=== PATIENT | female | born 1950 | race African-American/Black ===

== ENCOUNTER 2025-01-07 10:00 | Outpatient (AMB) | payer MEDICARE, OTHER, SELFPAY ==
--- NOTE | 2025-01-07 10:03 | A.OFFVIS_ITS ---
Vital Signs 01/07/25 10:05 Height 5 ft 5 in Weight 210 lb BMI 34.9 BP 145/76 H Blood Pressure Location Lt brachial Position Sitting Respiration 16 Pulse 91 Pulse Source Pulse Oximeter Pulse Oximetry (%) 99 Oxygen Delivery Method Room Air Intake Visit Reasons: Lumbar radiculopathy Warehouse Inventory Clerk Required: No Allergies No Known Allergies Allergy (Verified 01/07/25 10:07) Medication List - Last Reconciled 01/07/25 by Hoa Bryant LPN acetaminophen 500 mg PO TID gabapentin 600 mg PO TID HPI HPI Lumbar radiculopathy: Details: History of Present Illness The patient is a 74-year-old female presenting with lumbar radiculopathy. Her condition is characterized by pain in the left lower back with radiation to the left leg, which has worsened over several months. 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 The patient?s pain severity ranges from 3 to 5/10. Initial physical therapy sessions provided relief, but the symptoms persisted, leading to two transforaminal epidural steroid injections that offered limited and temporary relief. Despite ongoing medication therapy with gabapentin and amitriptyline, the patient continues to experience issues, specifically at night, although reports indicate an overall improvement in the last three months. The primary concern remains the interference of pain with her daily activities and sleep. Pain Description - Onset: Several years ago; worsened in recent months. - Quality: Aching pain. - Location: Left lower back with radiation down to the left leg. - Intensity: Initially 3 to 5/10. - Timing: Worse at night. - Exacerbating Factors: Lying down. - Relieving Factors: Medication, potentially physical therapy. - Interference: Nighttime sleep disturbances and daily activities. Results - MRI: - Moderate central stenosis at L4-5 with L5 nerve root compression, worse on the left side. - Transitional anatomy with sacralization of L5. 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 Pain Management - Affect: Pain impacts nighttime sleep and daily functional ability. - Analgesia: Current pain levels are 3 to 5/10. Medications include gabapentin (600 mg TID) and amitriptyline. - Adverse Effects: Dependency concern on gabapentin. - Activities of Daily Living: Significant impact due to nocturnal pain. - Aberrant Drug Related Behaviors: No aberrant behaviors noted. Physical Exam Vital Signs: Last Vital Signs Pulse 91 01/07/25 10:05 Resp 16 01/07/25 10:05 BP 145/76 H 01/07/25 10:05 Pulse Ox 99 01/07/25 10:05 Oxygen Delivery Method Room Air 01/07/25 10:05 BMI result Body Mass Index 34.9 Assessment & Plan Assessment & Plan (1) Lumbar radiculopathy: Code(s): M54.16 - Radiculopathy, lumbar region Category: Medical Plan - Continue strengthening and stretching exercises daily. - Gradually reduce gabapentin as discussed: Start taking one instead of two tablets, three times a day. - Monitor pain levels and contact me if severe pain flares occur. - Maintain current exercise and yoga activities. - Use Tylenol as needed for pain relief. - Discuss any changes in symptoms or concerns at the next follow-up. Patient was informed and verbally consented to the use of an ambient scribe for clinic note documentation during this visit. Coding Level of Care Code New Pt Level 4 (30872) Diagnoses Lumbar radiculopathy M54.16
[2025-01-07 10:05] VITALS: BP 145/76; PULSE 91; RESP 16; O2SAT 99; BMI 34.9
--- OUTSIDE RECORDS SUMMARY | 2025-01-07 10:46 | XMS_ITS | Continuity of Care Document ---
Author Organization [facility] Address [address] [place] [address]- Care Team Providers Care Waredresser Name Role Phone Mary Carmen Leal MD [id number]24 [facility] [address] [place], [place] [address] Encounter Diagnosis Lumbosacral disc herniation(Discharge Diagnosis) - 12/08/24 Hypertension(Discharge Diagnosis) - 12/08/24 Attending Physician: Mary Carmen Leal MD Encounter Type: Office Visit Allergies, Adverse Reactions, Alerts No Known Allergies Immunizations Given and Recorded Vaccine Date Status Refusal Reason pneumococcal 20-valent conjugate vaccine 03/23/24 Recorded zoster vaccine, inactivated 09/05/23 Recorded zoster vaccine, inactivated 06/21/23 Recorded SARS-CoV-2 mRNA ([id number]) vax 06/12/22 Recorded SARS-CoV-2 (COVID-19) mRNA BNT-162b2 vac 10/03/21 Recorded SARS-CoV-2 (COVID-19) mRNA BNT-162b2 vac 02/18/21 Recorded SARS-CoV-2 (COVID-19) mRNA BNT-162b2 vac 01/28/21 Recorded pneumococcal 13-valent vaccine 1 05/25/18 Given tetanus/diphtheria/pertussis, acel(Tdap) 2 04/01/16 Given Zoster Vaccine Live 3 12/10/15 Recorded pneumococcal 23-valent vaccine 4 07/31/15 Given 1Result Comment: [05/25/2018] [facility]# [id number] pt. tolerated inj. without complications...CO 2Result Comment: [04/01/2016] given w/o incident...AD 3[facility] History: [facility] 4Result Comment: [07/31/2015] given without incident....vs Medications amLODIPine 5 mg oral tablet 5 mg, 1, tablet, By Mouth, Daily, # 90 tablet, Refills 3, Tot. Refills 3, Maintenance, 08/30/24 1:18:00 PM EDT, Route to Pharmacy Electronically, [id number], NOTE NOW TAKING 5MG TAB; PUT ON FILE, 164, cm, 08/30/24 12:38:00 EDT, Height, 93.3, kg, 08/30/24 12:38:00 EDT, Dry Weight Start Date: 08/30/24 Status: Ordered Quantity: 90.0 Unit: tablet Repeat number: 4 aspirin 81 mg oral tablet 1 tablet = 81 mg, By Mouth, Daily, # 30 tablet, 0 Refills, Maintenance, 07/31/15 8:19:52 AM EDT, Tablet Start Date: 07/31/15 Status: Ordered Quantity: 30.0 Unit: tablet Repeat number: 1 calcium carbonate (OP) By Mouth, 0 Refills, Maintenance, 2 Start Date: 05/07/22 Status: Ordered Repeat number: 1 ferrous sulfate 325 mg oral tablet 1 tablet = 325 mg, By Mouth, Every 48 hours, # 30 tablet, 6 Refills, Maintenance, 07/31/15 8:20:47 AM EDT, Tablet Start Date: 07/31/15 Stop Date: 08/30/15 Status: Ordered Quantity: 30.0 Unit: tablet Repeat number: 1 gabapentin 300 mg oral capsule 2, capsule, By Mouth, 3 times a day, # 180 capsule, Refills 11, Tot. Refills 11, Maintenance, 08/30/24 1:19:00 PM EDT, Route to Pharmacy Electronically, [facility], 164, cm, 08/30/24 12:38:00 EDT, Height, 93.3, kg, 08/30/24 12:38:00 EDT, Dry Weight Start Date: 08/30/24 Status: Ordered Quantity: 180.0 Unit: capsule Repeat number: 12 Hair, skin & Nails Multiple Vitamins with Minerals oral tablet 1 tablet, By Mouth, Daily, # 90 tablet, 2 Refills, Maintenance, 03/13/22 1:51:00 PM EDT, [facility], Partial fill upon patient request if the prescription is for a schedule II opioid drug., 1 tablet By Mouth Daily, 163.3, cm, 03/13/22 13:07:00 EDT, Height, 90.1, kg, 05/09/21 11:09:00 EDT, Dry Weight Start Date: 03/13/22 Status: Ordered Quantity: 90.0 Unit: tablet Repeat number: 3 Home Blood Pressure Monitor See Instructions, # 1 Unknown, Maintenance, dx: I10 use daily, 12/09/22 4:07:00 PM EST, Supply, 162.9, cm, 11/14/22 8:13:00 EST, Height, 92.54, kg, 05/07/22 15:44:00 EDT, Dry Weight Start Date: 12/09/22 Status: Ordered Quantity: 1.0 Unit: Unknown Repeat number: 1 Lidoderm 5% film See Instructions, 1 patch Topically Daily remove patches after 12 hours, # 30 patch, 11 Refills, Maintenance, 08/30/24 1:19:00 PM EDT, Film, [facility], Partial fill upon patient request if the prescription is for a schedule II opioid drug., 1 patch Topically Daily; remove patches after 12 hours, 164, cm, 08/30/24 12:38:00 EDT, Height, 93.3, kg, 08/30/24 12:38:00 EDT, Dry Weight Start Date: 08/30/24 Status: Ordered Quantity: 30.0 Unit: patch Repeat number: 12 Nature's Bounty Red Krill Oil = 1,000 mg, By Mouth, Daily, 0 Refills, Maintenance, 03/18/18 9:21:08 AM EDT Start Date: 03/18/18 Status: Ordered Repeat number: 1 Tylenol Extra Strength 500 mg oral tablet 2 tablet = 1,000 mg, By Mouth, 3 times a day, PRN Pain , Moderate, # 100 tablet, 0 Refills, Maintenance, 12/08/24 11:37:00 AM EST, Tablet, Partial fill upon patient request if the prescription is for aschedule II opioid drug. Start Date: 12/08/24 Status: Ordered Quantity: 100.0 Unit: tablet Repeat number: 1 Vitamin D3 1000 intl units oral capsule 1 capsule = 25 mcg, By Mouth, Daily, # 100 capsule, 0 Refills, Maintenance, 07/31/15 8:20:17 AM EDT,Capsule Start Date: 07/31/15 Status: Ordered Quantity: 100.0 Unit: capsule Repeat number: 1 Problem List Condition Confirmation Course Effective Dates Status Health St atus Informant Lumbosacral disc herniation Confirmed Active Acid reflux Confirmed Active History of endometrial cancer Confirmed Active Hypertension Confirmed Active Lower back pain Confirmed Active Obese class I Confirmed Active Routine medical exam Confirmed Active Post herpetic neuralgia Confirmed Active Lumbar disc herniation Confirmed Active Reflux of urine Confirmed Active Diagnosis Diagnosis Type Effective Dates Health Status Clinical Service Informant Lumbosacral disc herniation Discharge Diagnosis 12/08/24 Hypertension Discharge Diagnosis 12/08/24 Social History Social History Type Response Smoking Status Never smoker entered on: 01/24/15 Sex Sex Representation Female (finding) Patient Care team information Care Team Personnel Name: Mary Carmen Leal MD Position: [facility] Physician - Primary Care Member Role: PCP Address: [address] [place] [address] Telecom: Care Team Related Persons Name: REAL FRANKEL Name: ISABELLE SANDOVAL Name: ADA BARBA Insurance Providers Guarantor name: JUAN JOSE BARBA Health Plan Information #: 2 Payer: [facility] Member Number: [id number] Policy Number: NA Group Number: [id number] Health Plan Information #: 1 Payer: MEDICARE PART B OUTPT Member Number: [id number] Policy Number: NA Group Number: NA
--- OUTSIDE RECORDS SUMMARY | 2025-01-07 10:46 | XMS_ITS | Continuity of Care Document ---
Author Organization [facility] Address [address] [place] [address]- Care Team Providers Care Hearing Care Practitioner Name Role Phone Mary Carmen Leal MD Primary Care Physician [id number] Date(s): 11/23/24 - 12/23/24 [facility] [address] [place], [place] [address] Encounter Type: Triage Allergies, Adverse Reactions, Alerts No Known Allergies Immunizations Given and Recorded Vaccine Date Status Refusal Reason pneumococcal 20-valent conjugate vaccine 03/23/24 Recorded zoster vaccine, inactivated 09/05/23 Recorded zoster vaccine, inactivated 06/21/23 Recorded SARS-CoV-2 mRNA ([id number]) vax 06/12/22 Recorded SARS-CoV-2 (COVID-19) mRNA BNT-162b2 vac 10/03/21 Recorded SARS-CoV-2 (COVID-19) mRNA BNT-162b2 vac 02/18/21 Recorded SARS-CoV-2 (COVID-19) mRNA BNT-162b2 vac 01/28/21 Recorded pneumococcal 13-valent vaccine 1 05/25/18 Given tetanus/diphtheria/pertussis, acel(Tdap) 2 04/01/16 Given Zoster Vaccine Live 3 12/10/15 Recorded pneumococcal 23-valent vaccine 4 07/31/15 Given 1Result Comment: [05/25/2018] [facility]# [id number] pt. tolerated inj. without complications...CO 2Result Comment: [04/01/2016] given w/o incident...AD 3Location History: [facility] 4Result Comment: [07/31/2015] given without incident....vs Medications amLODIPine 5 mg oral tablet 5 mg, 1, tablet, By Mouth, Daily, # 90 tablet, Refills 3, Tot. Refills 3, Maintenance, 08/30/24 1:18:00 PM EDT, Route to Pharmacy Electronically, [facility], NOTE NOW TAKING 5MG TAB; [...] 1:19:00 PM EDT, Route to Pharmacy Electronically, [facility], 164, cm, 08/30/24 12:38:00 EDT, Height, 93.3, kg, 08/30/24 12:38:00 EDT, Dry Weight Start Date: 08/30/24 Status: Ordered Quantity: 180.0 Unit: capsule Repeat number: 12 Hair, skin & Nails Multiple Vitamins with Minerals oral tablet 1 tablet, By Mouth, Daily, # 90 tablet, 2 Refills, Maintenance, 03/13/22 1:51:00 PM EDT, [facility], Partial fill upon patient request if [...] Refills, Maintenance, 08/30/24 1:19:00 PM EDT, Film, [facility] #[facility], Partial fill upon patient request [...] Confirmed Active Reflux of urine Confirmed Active Social History Social History Type Response Smoking Status Never smoker entered on: 01/24/15 Sex Sex Representation Female (finding) Patient Care team information Care Team Personnel Name: Mary Carmen Leal MD Position: [facility] Physician - Primary Care Member Role: PCP Address: [address] [place] [address] Telecom: Care Team Related Persons Name: REAL FRANKEL Name: ISABELLE SANDOVAL Name: ADA BARBA Insurance Providers Guarantor name: JUAN JOSE BARBA Health Plan Information #: 1 Payer: MEDICARE PART B OUTPT Member Number: NA Policy Number: NA Group Number: NA Health Plan Information #: 2 Payer: [facility] Member Number: NA Policy Number: NA Group Number: NA
== END 2025-01-07 10:47 | disposition home or self-care (01) ==
PROVIDERS: PCP Internal Medicine; Visit Provider Internal Medicine
DX: M54.16 Radiculopathy, lumbar region (principal)
CPT/HCPCS: 99204

== ENCOUNTER → 2025-01-07 10:00 | Outpatient (BNVA) | payer MEDICARE, OTHER, SELFPAY | PROVIDERS: PCP Internal Medicine; Visit Provider Internal Medicine | DX: M54.16 Radiculopathy, lumbar region (principal) | CPT/HCPCS: 99202 ==

== ENCOUNTER 2025-03-25 09:45 | Outpatient (AMB) | payer MEDICARE, OTHER, SELFPAY ==
[2025-03-25 09:50] VITALS: BP 142/92; PULSE 92; RESP 16; O2SAT 94; BMI 34.9
--- NOTE | 2025-03-25 09:50 | MHC.OFFVIS ---
Vital Signs 03/25/25 09:50 Height 5 ft 5 in Weight 210 lb BMI 34.9 BP 142/92 H Blood Pressure Location Lt brachial Position Sitting Respiration 16 Pulse 92 Pulse Source Pulse Oximeter Pulse Oximetry (%) 94 Oxygen Delivery Method Room Air Intake Visit Reasons: Lumbar Radiculopathy Vice President Of Development Required: No Allergies No Known Allergies Allergy (Verified 03/25/25 09:51) Medication List - Last Reconciled 03/25/25 by Hoa Bryant LPN acetaminophen 500 mg PO TID amlodipine mg PO aspirin (Adult Aspirin Regimen) 81 mg PO DAILY calcium carbonate 500 mg PO DAILY cholecalciferol (vitamin D3) 25 mcg PO DAILY ferrous sulfate 325 mg PO Q OTHER DAY gabapentin 600 mg PO TID krill oil 500 mg PO DAILY HPI HPI Lumbar Radiculopathy: Details: History of Present Illness The patient is a 74-year-old female presenting with chronic pain follow-up concerns. She describes persistent lumbar region discomfort with characteristics of radiculopathy, primarily affecting her left side. Despite dosage adjustments in her gabapentin intake, she reports an unchanged pain level, rated consistently between 3 and 5 out of 10. The pain worsens while recumbent and extends into her left foot, culminating in numbness and tingling. Previous therapeutic trials including medication and supplements have yielded inadequate relief of symptoms. Her regimen currently involves gabapentin and Tylenol, and she remains hopeful that magnesium and nerve supplements might offer future benefit. Pain Description - Onset & Timing: Pain persists chronically, noted more severely during nighttime. - Quality & Character: Radiating pain accompanies numbness and tingling. - Primary Location: Predominantly in the lumbar region, on the left side. - Radiation: Descends to left foot. - Exacerbating Factors: Lying down increases severity. - Relieving Factors: No definitive relief noted with current medication adjustments. - Impact on Activities: Pain interferes with sleep and possibly with daytime activities when intense. Physical Exam - Appears afebrile. - Alert and oriented. - Mood and affect appropriate. - Follows and participates in conversation appropriately. - Respiratory effort is unlabored. - Able to transition from sit to stand unassisted. - Ambulates with bilaterally normal heel strike and toe off. - Able to stand and walk on toes and heels. Results - Imaging: MRI of lumbar region previously reviewed; specifics deferred until next follow-up with visual reference available from [place] imaging system. Pain Management - Analgesia: Gabapentin not effective in reducing pain; current pain level 3-04/09. - Adverse Effects: None noted from gabapentin upon reduction. - Activities of Daily Living: Pain interferes with rest and daily comfort when prone. - Aberrant Drug Related Behaviors: None reported. - Affect: Patient?s mood or psychological well-being was not explicitly discussed. Physical Exam Vital Signs: Last Vital Signs Pulse 92 03/25/25 09:50 Resp 16 03/25/25 09:50 BP 142/92 H 03/25/25 09:50 Pulse Ox 94 03/25/25 09:50 Oxygen Delivery Method Room Air 03/25/25 09:50 BMI result Body Mass Index 34.9 Assessment & Plan Assessment & Plan (1) Lumbar radiculopathy: Code(s): M54.16 - Radiculopathy, lumbar region Category: Medical Plan Plan - Reduce gabapentin to twice daily for a week, observe effects. - Introduce magnesium and nerve supplements. - Re-evaluate pain and effectiveness of interventions in May/July. - Consider interlaminar epidural injections in response to persistent symptoms. - Recommend non-deep tissue massage for relief if no contraindications. Patient was informed and verbally consented to the use of an ambient scribe for clinic note documentation during this visit. Discussion Notes I discussed the patient's ongoing lumbar radiculopathy and chronic pain management options. We reviewed her previous response to gabapentin and alternatives including magnesium and nerve supplements. By reducing her gabapentin intake and integrating supplements, we aim to better manage her symptoms without compromising her quality of life. Should her pain remain unmitigated, she is prepared to explore interlaminar epidural injections. We will reassess her condition at a subsequent appointment in May or July, at which time equipment for MRI review will be on hand. Additionally, we reviewed the benefits and limitations of massage therapy in the context of her care and agreed on a standard massage approach unless specified conditions like osteoporosis imply otherwise. Patient Instructions - Take gabapentin twice a day for one week. Note any changes in pain. - Try magnesium and nerve supplements. Monitor for any side effects. - Schedule an appointment for May or July for follow-up and possible imaging review. - Consider massage for discomfort, avoiding deep tissue unless otherwise advised. - Contact the office if symptoms worsen before the scheduled appointment. Coding Level of Care Code Est Pt Level 3 (08931) Diagnoses Lumbar radiculopathy M54.16
== END 2025-03-25 10:15 | disposition home or self-care (01) ==
LOC: HO.PMC 09:45
PROVIDERS: PCP Internal Medicine; Visit Provider Internal Medicine
DX: M54.16 Radiculopathy, lumbar region (principal)
CPT/HCPCS: 99213

== ENCOUNTER → 2025-03-25 09:45 | Outpatient (BNVA) | payer MEDICARE, OTHER, SELFPAY | PROVIDERS: PCP Internal Medicine; Visit Provider Internal Medicine | DX: M54.16 Radiculopathy, lumbar region (principal) | CPT/HCPCS: 99212 ==

== ENCOUNTER 2025-06-13 09:05 | Outpatient (AMB) | payer MEDICARE, OTHER, SELFPAY ==
--- NOTE | 2025-06-13 09:09 | MHC.OFFVIS ---
Vital Signs 06/13/25 09:11 Height 5 ft 5 in Weight 205 lb BMI 34.1 BP 136/83 Blood Pressure Location Lt brachial Position Sitting Respiration 16 Pulse 85 Pulse Source Pulse Oximeter Pulse Oximetry (%) 98 Oxygen Delivery Method Room Air Intake Visit Reasons: FU patient req Senior Operator Required: No Allergies No Known Allergies Allergy (Verified 06/13/25 09:13) Medication List - Last Reconciled 06/13/25 by Hoa Bryant LPN acetaminophen 500 mg PO TID amlodipine mg PO aspirin (Adult Aspirin Regimen) 81 mg PO DAILY calcium carbonate 500 mg PO DAILY cholecalciferol (vitamin D3) 25 mcg PO DAILY ferrous sulfate 325 mg PO Q OTHER DAY gabapentin 600 mg PO TID krill oil 500 mg PO DAILY HPI HPI FU patient req: Details: History of Present Illness The patient is a 74-year-old female presenting for follow-up of lumbar radicular symptoms. The symptoms have persisted despite medication adjustments, including gabapentin, and physical therapy. The patient reports that the pain is primarily in the left leg, originating from the nerve and radiating downwards. The patient has a history of disc herniation at L3-4 and L4-5, which is contributing to the radicular symptoms. She has attempted various interventions, including magnesium supplements and compression stockings, without significant relief. The swelling in the left foot is noted, but it does not appear to worsen throughout the day. Pain Description - Onset and Timing: Persistent pain primarily in the left leg, worsens when lying down. - Quality and Character: Radiating pain from the nerve down the leg. - Location: Left leg, originating from the nerve. - Exacerbating Factors: Compression stockings increase pain. - Relieving Factors: None noted from current interventions. Physical Exam - Musculoskeletal: Positive straight leg raise test on the left side - Musculoskeletal: Mildly positive straight leg raise test on the right side Results Pain Management - Affect: Pain is impacting daily activities, especially when lying down. - Analgesia: Current medications include gabapentin, with limited relief. - Adverse Effects: Compression stockings cause increased pain. - Activities of Daily Living: Pain interferes with lying down and requires support when weight is on the left leg. - Aberrant Drug Related Behaviors: None reported. Physical Exam Vital Signs: Last Vital Signs Pulse 85 06/13/25 09:11 Resp 16 06/13/25 09:11 BP 136/83 06/13/25 09:11 Pulse Ox 98 06/13/25 09:11 Oxygen Delivery Method Room Air 06/13/25 09:11 BMI result Body Mass Index 34.1 Assessment & Plan Assessment & Plan (1) Lumbar radiculopathy: Code(s): M54.16 - Radiculopathy, lumbar region Category: Medical Plan Plan - Plan for a two-level TFESI at L3-4 and L4-5 to address nerve compression related radicular pain. - Obtain insurance authorization for the procedure. - Continue with stretching exercises to manage symptoms. Patient was informed and verbally consented to the use of an ambient scribe for clinic note documentation during this visit. Discussion Notes I discussed with the patient the plan for a two-level injection at L3-4 and L4-5 to alleviate nerve irritation. We talked about the need for insurance authorization before proceeding with the procedure. I emphasized the importance of continuing stretching exercises as part of the long-term management plan. Patient Instructions - Await a call for insurance authorization before scheduling the injection. - Continue with prescribed stretching exercises daily. - Monitor for any changes in symptoms and report them during the next visit. Coding Level of Care Code Est Pt Level 3 (77146) Diagnoses Lumbar radiculopathy M54.16
[2025-06-13 09:11] VITALS: BP 136/83; PULSE 85; RESP 16; O2SAT 98; BMI 34.1
== END 2025-06-13 09:55 | disposition home or self-care (01) ==
LOC: HO.PMC 09:06
PROVIDERS: PCP Internal Medicine; Visit Provider Internal Medicine
DX: M54.16 Radiculopathy, lumbar region (principal)
CPT/HCPCS: 99213

== ENCOUNTER → 2025-06-13 09:05 | Outpatient (BNVA) | payer MEDICARE, OTHER, SELFPAY | PROVIDERS: PCP Internal Medicine; Visit Provider Internal Medicine | DX: M54.16 Radiculopathy, lumbar region (principal); Z79.82 Long term (current) use of aspirin; Z79.899 Other long term (current) drug therapy | CPT/HCPCS: 99212 ==

== ENCOUNTER 2025-07-14 07:34 | Outpatient (REF) | payer MEDICARE, OTHER, SELFPAY ==
--- NOTE | ~2025-07-14 | FL_ITS ---
EXAMINATION: FL GUIDANCE ONLY HISTORY: M54.16 - Radiculopathy, lumbar region COMPARISON: None available. TECHNIQUE: Fluoroscopy time: 0.1 minutes. Cumulative Dose: 5.93 mGy. DAP: 0.576 mGym2 Images: 2. FINDINGS: Fluoroscopic spot films of the lumbar spine demonstrate a needle and contrast in the region of the left L4 pedicle. FL/FL guidance in treatment room IMPRESSION: Fluoroscopy during procedure. Please see procedure report for additional information. Electronically signed by: Ajay Green MD 07/14/2025 03:44 PM EDT
== END 2025-07-14 07:35 | disposition home or self-care (01) ==
LOC: CF 07:34
PROVIDERS: Visit Provider Internal Medicine
DX: M54.16 Radiculopathy, lumbar region (principal)
CPT/HCPCS: 64483; J1100; J2003; Q9967

== ENCOUNTER 2025-07-14 12:18 | Outpatient (AMB) | payer MEDICARE, OTHER, SELFPAY ==
[2025-07-14 12:24] VITALS: BP 126/74; PULSE 87; RESP 16; O2SAT 99; BMI 34.1
--- NOTE | 2025-07-14 12:24 | MHC.OFFVIS ---
Vital Signs 07/14/25 12:24 07/14/25 12:47 Height 5 ft 5 in Weight 205 lb BMI 34.1 BP 126/74 146/78 H Blood Pressure Location Lt brachial Lt brachial Position Sitting Sitting Respiration 16 16 Pulse 87 83 Pulse Source Pulse Oximeter Pulse Oximeter Pulse Oximetry (%) 99 100 Oxygen Delivery Method Room Air Room Air Intake Visit Reasons: Left L4-L5 TFESI Allergies No Known Allergies Allergy (Verified 06/13/25 09:13) HPI HPI Left L4-L5 TFESI: Details: Patient presents for scheduled procedure. Denies any recent cough, cold, infection, fever or other significant changes in medical history since last office visit. Physical Exam Vital Signs: Last Vital Signs Pulse 83 07/14/25 12:47 Resp 16 07/14/25 12:47 BP 146/78 H 07/14/25 12:47 Pulse Ox 100 07/14/25 12:47 Oxygen Delivery Method Room Air 07/14/25 12:47 BMI result Body Mass Index 34.1 Office Procedures Details: Transforaminal epidural steroid injection, Left L4/5 After obtaining written consent, pre-procedure blood pressure and heart rate were stable and recorded in the nursing record. The patient was placed in the prone position on the fluoroscopy table. The lumbosacral area was prepped with chloraprep, allowed to dry and draped in sterile fashion. Using fluoroscopy, the skin overlying our target was anesthetized with 0.5% lidocaine. A 22 gauge 3.5 inch spinal needle was advanced to the safe triangle in the upper pole of the left L4 foramen. No paresthesias were elicited with needle placement and aspiration was negative for blood and CSF. Correct needle position was confirmed with approximately 1 ml contrast dye (Omnipaque 180 mg/ml) injected under real-time fluoroscopy. No evidence of vascular or intrathecal uptake was seen and there was both epidural and peripheral spread of the contrast agent. 10 mg dexamethasone plus 1 ml containing 0.5% lidocaine was slowly injected. The needle was flushed and removed. The skin was cleansed and a sterile bandages were applied. The patient tolerated the procedure well and no complications were encountered. Following the procedure the patient's vital signs were stable. The patient was discharged home in good condition with post-procedural instructions. Time Out: Immediately prior to the procedure, the following was verbally confirmed that there is a signed consent form and that the correct patient, planned procedure, site and side are consistent with documentation and that necessary equipment and/or blood products are available prior to the start of the case. Complications: none EBL: <5 cc 74173 - Lumbar/Sacral Procedure code (CPT) selection complete Assessment & Plan Assessment & Plan (1) Lumbar radiculopathy: Code(s): M54.16 - Radiculopathy, lumbar region Category: Medical Plan Patient is status post left L4-5 TFESI. Patient tolerated procedure well and was discharged home in stable condition with discharge instructions. All questions were answered. We will follow-up via telephone or in clinic to assess response to therapy. A follow-up appointment was made during today's visit. Orders: Orders FL guidance in treatment room Today M54.16 - Radiculopathy, lumbar region AMB Transforaminal Epidural Steroid Injection Today M54.16 - Radiculopathy, lumbar region Coding Level of Care Code Procedure Only Diagnoses Lumbar radiculopathy M54.16 CPT Codes Transforaminal Epidural Steroid Inj - TESI 3: 29552 - Lumbar/Sacral ([id number])
[2025-07-14 12:47] VITALS: BP 146/78; PULSE 83; RESP 16; O2SAT 100
== END 2025-07-14 13:44 | disposition home or self-care (01) ==
LOC: HO.PMCPRC 12:18
PROVIDERS: PCP Internal Medicine; Visit Provider Internal Medicine
DX: M54.16 Radiculopathy, lumbar region (principal)
CPT/HCPCS: 64483

== ENCOUNTER 2025-08-10 09:47 | Outpatient (AMB) | payer MEDICARE, OTHER, SELFPAY ==
--- NOTE | 2025-08-10 09:56 | A.OFFVIS_ITS ---
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 Accompanied by: Spouse Allergies No Known Allergies Allergy (Verified 08/10/25 09:59) Medication List - Last Reconciled 08/10/25 by oHa Bryant LPN acetaminophen 500 mg PO TID amlodipine mg PO aspirin (Adult Aspirin Regimen) 81 mg PO DAILY calcium carbonate 500 mg PO DAILY cholecalciferol (vitamin D3) 25 mcg PO DAILY ferrous sulfate 325 mg PO Q OTHER DAY gabapentin 600 mg PO TID krill oil 500 mg PO DAILY HPI HPI s/p Left L4-L5 TFESI: Details: History of Present Illness The patient is a 75-year-old female presenting for follow-up after a left L4 transforaminal epidural steroid injection for left lumbar radiculopathy. The patient reports that the relief from the injection lasted about a week. The injection was administered transforaminal, and there is a consideration to attempt a repeat injection interlaminar if necessary. The patient has been engaging in exercises recommended by a physical therapist and using an mira called [facility] to guide her through exercises for sciatica. She has also tried an [place]so Pain Reliever Treatment, which has not yet shown significant benefit. The patient has been advised to maintain a strong core and healthy weight to manage her condition better. She is encouraged to perform exercises daily, adjusting the timing based on her comfort and pain levels. Pain Description - Onset: Pain relief from injection lasted about a week - Quality: Not specified - Location: Left lumbar region - Exacerbating factors: Not specified - Relieving factors: Epidural steroid injection, exercises Physical Exam - Musculoskeletal: Limited range of motion in the left leg, no back pain reported during leg raise Results - MRI: Conducted at [facility], specific findings not discussed Pain Management - Affect: Not discussed - Analgesia: Current pain level not specified, goal to achieve consistent relief - Adverse Effects: None reported - Activities of Daily Living: Exercises recommended to maintain function - Aberrant Drug Related Behaviors: None reported Physical Exam Vital Signs: Last Vital Signs Pulse 77 08/10/25 09:57 Resp 16 08/10/25 09:57 BP 130/82 08/10/25 09:57 Pulse Ox 99 08/10/25 09:57 Oxygen Delivery Method Room Air 08/10/25 09:57 BMI result Body Mass Index 34.4 Assessment & Plan Assessment & Plan (1) Lumbar radiculopathy: Code(s): M54.16 - Radiculopathy, lumbar region Category: Medical Plan Plan Patient was informed and verbally consented to the use of an ambient scribe for clinic note documentation during this visit. 1. Left Lumbar Radiculopathy - Plan to attempt a repeat epidural steroid injection through L4/5 interlaminar route - Continue with exercises as recommended by physical therapist and [facility] mira - Schedule next injection after September 17, post-travel Discussion Notes I discussed with the patient the option of attempting a repeat epidural steroid injection through a different route since the initial approach did not provide sustained relief. We also talked about the importance of continuing exercises as recommended by her physical therapist and using the [employer] mira to manage her condition. The patient was informed that the next injection would be scheduled after September 17, once she returns from travel. Patient Instructions - Continue with exercises as recommended by your physical therapist and the [employer] mira. - Plan for a repeat epidural steroid injection after September 17. - Monitor pain levels and adjust exercise timing based on comfort. Coding Level of Care Code Est Pt Level 4 (46967) Diagnoses Lumbar radiculopathy M54.16
[2025-08-10 09:57] VITALS: BP 130/82; PULSE 77; RESP 16; O2SAT 99; BMI 34.4
== END 2025-08-10 10:48 | disposition home or self-care (01) ==
LOC: HO.PMC 09:49
PROVIDERS: PCP Internal Medicine; Visit Provider Internal Medicine
DX: M54.16 Radiculopathy, lumbar region (principal)
CPT/HCPCS: 99214

== ENCOUNTER → 2025-08-10 09:47 | Outpatient (BNVA) | payer MEDICARE, OTHER, SELFPAY | PROVIDERS: PCP Internal Medicine; Visit Provider Internal Medicine | DX: M54.16 Radiculopathy, lumbar region (principal) | CPT/HCPCS: 99212 ==

== ENCOUNTER 2025-10-25 09:14 | Outpatient (AMB) | payer MEDICARE, OTHER, SELFPAY ==
--- NOTE | 2025-10-25 09:18 | A.OFFPC_ITS ---
Vital Signs 10/25/25 09:21 Height 5 ft 5 in Weight 207 lb 2 oz BMI 34.5 BP 112/80 Blood Pressure Location Rt brachial Position Sitting Respiration 16 Pulse 78 Pulse Source Pulse Oximeter Temp 96.9 F Temp Source Temporal Artery Scan Pulse Oximetry (%) 98 Oxygen Delivery Method Room Air Intake Visit Reasons: routine, [facility] [employer] Level Five Required: No Accompanied by: Self / Same As Patient Allergies No Known Allergies Allergy (Verified 10/25/25 09:19) Medication List - Last Reconciled 10/25/25 by Mary Carmen Leal MD acetaminophen 500 mg PO TID amlodipine 5 mg PO DAILY aspirin (Adult Aspirin Regimen) 81 mg PO DAILY calcium carbonate 500 mg PO DAILY cholecalciferol (vitamin D3) 25 mcg PO DAILY ferrous sulfate 325 mg PO Q OTHER DAY gabapentin 100 mg PO BID krill oil 500 mg PO DAILY lidocaine 5% 2 patches topical DAILY Tobacco use date assessed: 10/25/25 Fall risk assessment: 1 Fall in past year Last assessed Fall Risk: 10/25/25 Dental Screening Dental Screen Date: 10/25/25 Did you have a dental visit in the last 12 months?: Yes Did you have a dental problem in the last 6 months where you did not have access to dental care?: No Was dental information given to patient?: Patient has dentist HPI HPI Comments History of Present Illness Details The patient is a 75 year old female presenting to [facility]. Chronic left leg pain with radiculopathy: The patient reports ongoing pain in the left leg, which radiates from the butt ock down to the foot. The pain level is currently a 3 out of 10, increasing to a 5 out of 10 at its worst. The patient received two prior injections; the first one was effective, but the second one, administered about six months ago, provided minimal relief, lasting only about a week. The patient is currently participating in the [facility] program for pain management, which has been beneficial. Neuropathic pain: The patient experiences a sharp, tingling, and burning sensation, which is most prominent when lying down, though it does not typically disrupt sleep all night. The patient has been tapering off gabapentin, reducing the daily dose from 600 mg to the current 300 mg. The patient noted an increase in the burning sensation after the dose was lowered to 400 mg daily. Essential Hypertension: The patient is on amlodipine 5 mg for blood pressure management. Anemia: The patient takes an iron supplement every other day for anemia. Obesity: The patient's weight this morning was 206 lbs. Activity level is limited by pain, preventing moderate-intensity aerobics. The patient reports no increase in food intake and denies any bloating. The patient stays active with chair yoga and stretching but previously did water aerobics. 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 Condition has been monitored by symptoms and liver function tests, and the patient denies any recurrence of previous symptoms like bloating. [facility] Medical History (Updated 10/26/25 @ 14:58 by Mary Carmen Leal MD) Vitamin B12 deficiency (dietary) anemia Vitamin D deficiency Endometrial cancer Mixed hyperlipidemia Anemia, unspecified Impaired fasting glucose Primary hypertension Surgical History (Updated 10/26/25 @ 09:10 by Mary Carmen Leal MD) Hepatic cyst H/O total hysterectomy History of colonoscopy (~02/15/19) Family History (Updated 10/25/25 @ 08:21 by Mary Carmen Leal MD) Other Breast cancer Primary hypertension Social History Housing: House Patient Tobacco Use Status: Never used Tobacco e-Cigarette/Vaping Use: Never Used Current occupational status: retired Questionnaire PHQ-9 Over the last 2 weeks, how often have you been bothered by any of the following problems? 1. Little interest or pleasure in doing things: several days 2. Feeling down, depressed, or hopeless: not at all 3. Trouble falling or staying asleep, or sleeping too much: not at all 4. Feeling tired or having little energy: not at all 5. Poor appetite or overeating: not at all 6. Feeling bad about yourself - or that you are a failure or have let yourself or your family down: not at all 7. Trouble concentrating on things, such as reading the newspaper or watching television: not at all 8. Moving or speaking so slowly that other people could have noticed. Or the opposite - being so fidgety or restless that you have been moving around a lot more than usual: not at all 9. Thoughts that you would be better off or of hurting yourself in some way: not at all Total score: 1 Depression Screening Interpretation: Negative Depression Screening Done: Yes [id number] - PHQ-9 Billing: Yes Source: Developed by Drs. Ajay Brown, Haley Garrison, Garrick Rodriguez and colleagues, with an educational krish from [employer]. AUDIT C Alcohol Use Questionnaire (AUDIT-C) 1. How often do you have a drink containing alcohol?: Monthly or less 2. How many drinks containing alcohol do you have on a typical day when you are drinking?: 1 or 2 3. How often do you have six or more drinks on one occasion?: Never Total Score: 1 Review of Systems Narrative Review of Systems - Gastrointestinal: Denies bloating. - Constitutional: Denies increased appetite; reports eating less than usual. - Musculoskeletal: Reports chronic pain in the left leg radiating from the buttock to the foot. - Neurological: Reports sharp, tingling, and burning pain, particularly when lying down. Physical exam (Primary Care) Vital Signs: Last Vital Signs Temp 96.9 F 10/25/25 09:21 Pulse 78 10/25/25 09:21 Resp 16 10/25/25 09:21 BP 112/80 10/25/25 09:21 Pulse Ox 98 10/25/25 09:21 Oxygen Delivery Method Room Air 10/25/25 09:21 BMI result Body Mass Index 34.5 Tobacco/Smoking Status: Tobacco use Status Tobacco use date assessed 10/25/25 10/25/25 09:21 Patient Tobacco Use Status Never used Tobacco 10/25/25 09:28 e-Cigarette/Vaping Use Never Used 10/25/25 09:28 PHQ-9: PHQ-9 Score PHQ-9: Total score 1 10/26/25 11:29 Depression Screening Interpretation: Negative Narrative Physical Exam - Respiratory: Lungs are clear to auscultation bilaterally, no wheezing. - Cardiovascular: Normal heart sounds and regular rhythm. Soft murmur across precordium - Abdomen: Bowel sounds are present and normal. Abdomen is soft, non-tender, and non-distended. - Musculoskeletal: No tenderness on palpation of the spine. Tenderness noted on palpation of the left paraspinal muscles. - Neurological: Straight leg raise on the left is limited and elicits a pulling sensation. Straight leg raise on the right demonstrates greater range of motion. Coding Level of Care Code Est Pt Level 4 (16489) Complex visit Add On G2211 Diagnoses Primary hypertension I10 Impaired fasting glucose R73.01 Anemia, unspecified type D64.9 Anemia type: unspecified type Mixed hyperlipidemia E78.2 Additional Codes PHQ-9 - 19133 - PHQ-9 Billing: Yes ([id number]) Assessment & Plan Assessment & Plan (1) Primary hypertension: Code(s): I10 - Essential (primary) hypertension Category: Medical (2) Impaired fasting glucose: Code(s): R73.01 - Impaired fasting glucose Category: Medical (3) Anemia, unspecified: Code(s): D64.9 - Anemia, unspecified Category: Medical Qualifiers: Anemia type: unspecified type Qualified Code(s): D64.9 - Anemia, unspecified (4) Mixed hyperlipidemia: Code(s): E78.2 - Mixed hyperlipidemia Category: Medical (5) Mixed hyperlipidemia: Code(s): E78.2 - Mixed hyperlipidemia Category: Medical Plan Assessment and Plan 1. Chronic left leg pain with radiculopathy - The patient's pain is partially managed with the [facility] program, which has been beneficial. - Given it has been six months since the last injection, the plan is for the patient to proceed with another trial of a pain injection. 2. Neuropathic pain - The tapering of gabapentin from 600 mg to 300 mg daily has led to an increase in burning pain. - The dose will be increased back to 400 mg daily to better control this symptom until the next injection. - A new prescription for gabapentin 100 mg capsules will be sent, with instructions to take four capsules daily, potentially with a higher dose in the evening (e.g., 1-1-2) to address nocturnal symptoms. - We will reevaluate further tapering after the injection. 3. Essential hypertension - The condition is stable. - continue amlodipine 4. Anemia - The patient reports adherence to taking iron supplements every other day. - Will continue to monitor. 5. Obesity - The patient's weight is 206 lbs. - The inability to perform intense cardio due to pain is a significant contributing factor. - The patient is encouraged to continue current activities and will be advised to add low-impact water aerobics to the regimen to promote cardiovascular health and weight management. 6. Health Maintenance - Labs will be drawn today to establish a new baseline, including monitoring of liver function tests related to the patient's history. Plan - Increase gabapentin to 400 mg daily to manage neuropathic burning pain. - Continue the [facility] physical therapy program. - Proceed with a trial of another pain injection - Continue taking iron supplements every other day and [id number] calcium with vitamin D. - Recommend adding low-impact water aerobics to the current exercise regimen. Discussion Notes The patient and I agreed to increase the gabapentin dose back to 400 mg daily to mitigate these symptoms until the patient can receive another intervention. We discussed the benefit of proceeding with another pain injection, as it has been six months since the last one. We also addressed weight management, acknowledging the limitations on exercise due to pain. I recommended adding low-impact water aerobics as a suitable form of cardio. Patient Instructions - We will increase your gabapentin dose back to 400 mg per day to help with the burning pain in your leg. - Please continue doing your exercises with the [facility] program. - It is reasonable to try another pain injection since it has been six months. - To help with exercise, please consider adding low-impact water aerobics to your routine. Orders: Orders Complete Blood Count Auto Diff 10/25/25 D64.9 - Anemia, unspecified, E78.2 - Mixed hyperlipidemia, I10 - Essential (primary) hypertension, R73.01 - Impaired fasting glucose Ferritin 10/25/25 D64.9 - Anemia, unspecified, E78.2 - Mixed hyperlipidemia, I10 - Essential (primary) hypertension, R73.01 - Impaired fasting glucose Vitamin D 25-OH Total 10/25/25 D64.9 - Anemia, unspecified, E55.9 - Vitamin D deficiency, unspecified, E78.2 - Mixed hyperlipidemia, I10 - Essential (primary) hypertension Hemoglobin A1c 10/25/25 D64.9 - Anemia, unspecified, E78.2 - Mixed hyperlipidemia, I10 - Essential (primary) hypertension, R73.01 - Impaired fasting glucose Comprehensive Met. Panel 10/25/25 D64.9 - Anemia, unspecified, E78.2 - Mixed hyperlipidemia, I10 - Essential (primary) hypertension, R73.01 - Impaired fasting glucose IRON PROFILE 10/25/25 D64.9 - Anemia, unspecified, E78.2 - Mixed hyperlipidemia, I10 - Essential (primary) hypertension, R73.01 - Impaired fasting glucose Vitamin B12 10/25/25 D51.8 - Other vitamin B12 deficiency anemias, E78.2 - Mixed hyperlipidemia, I10 - Essential (primary) hypertension Microalbumin, Random (w Creat) 10/25/25 D64.9 - Anemia, unspecified, E78.2 - Mixed hyperlipidemia, I10 - Essential (primary) hypertension, R73.01 - Impaired fasting glucose Lipid Panel 10/25/25 E78.2 - Mixed hyperlipidemia Referrals Pain Management Referral M54.16 - Radiculopathy, lumbar region Medications: New amlodipine 5 mg PO DAILY 90 tabs 3RF gabapentin 400 mg (4 x 100 mg) PO DAILY 120 caps 6RF aspirin (Adult Aspirin Regimen) 81 mg PO DAILY 90 tabs 3RF cholecalciferol (vitamin D3) 25 mcg PO DAILY 90 caps 3RF
[2025-10-25 09:21] VITALS: BP 112/80; PULSE 78; RESP 16; TEMP 36.1; O2SAT 98; BMI 34.5
== END 2025-10-25 10:23 | disposition home or self-care (01) ==
LOC: HO.HMCHD 09:15
PROVIDERS: PCP Internal Medicine; Visit Provider Internal Medicine
DX: I10 Essential (primary) hypertension (principal); R73.01 Impaired fasting glucose; D64.9 Anemia, unspecified; E78.2 Mixed hyperlipidemia

== ENCOUNTER → 2025-10-25 09:14 | Outpatient (BNVA) | payer MEDICARE, OTHER, SELFPAY | PROVIDERS: PCP Internal Medicine; Visit Provider Internal Medicine | DX: Z00.00 Encounter for general adult medical examination without abnormal findings (principal); I10 Essential (primary) hypertension; R70.1 Abnormal plasma viscosity; D64.9 Anemia, unspecified; E78.2 Mixed hyperlipidemia; M54.16 Radiculopathy, lumbar region; G89.29 Other chronic pain; E66.9 Obesity, unspecified; R20.8 Other disturbances of skin sensation; D51.8 Other vitamin B12 deficiency anemias; Z87.19 Personal history of other diseases of the digestive system; Z13.30 Encounter for screening examination for mental health and behavioral disorders, unspecified; Z13.9 Encounter for screening, unspecified; Z13.1 Encounter for screening for diabetes mellitus | CPT/HCPCS: 36415; 80053; 80061; 82043; 82306; 82570; 82607; 82728; 83036; 83540; 85025; 96127; 99212 ==